=== PATIENT | female | born 1995 | race Hispanic/Latino ===

== ENCOUNTER 2018-11-24 13:51 | Inpatient (IN) | payer MEDICAID, OTHER ==
--- NOTE | 2018-11-24 14:48 | PDOC.LDHP ---
Labor and Delivery H&P Chief complaint: contractions HPI: 23 yo @ 40 wekks by LMP 9.3 week sono presents for cc of contractions. Pt reports contractions began at 7am this morning and were space every 10 minutes and eventually grew in proximity and strength to every 5 minutes. She reports pos movement. Denies LOF, vaginal bleeding and vaginal discharge. Pt initially had positive Ab screen; however, this was after receiving Rhogam for concern of miscarriage. Repeat Ab screen was negative. ROS: Gen- Denies fever chills HEENT: Denies changes in vision, denies headaches CV: Denies CP, increased edema Respiratory: Denies SOB Abd: reports contractions, denies NVDC OB: Pos FM, denies lof, denies vaginal bleeding Current gestational age (weeks): 40 Due date: 11/24/18 Dating criteria: first trimester ultrasound Grav: 1 Para: 0 Current complications: none Abnormal US findings: No Current medications: pre- vitamins Previous surgical history: none Social history: none - Physical Exam Vital signs reviewed and normal: yes General: NAD, breathing through contractions Heart: RRR Lungs: CTAB Abdomen: NTTP Extremeties: no edema FHT: category 1, variability present - Vaginal Exam cm dilated: 3 Effacement: 90% Station: -1 - OB Labs Blood type: A RH: negative Antibody Screen: negative (Pos D s/p Rhogam, repeat Ab screen negative) HIV: negative RPR: negative HEPSAg: negative 1 hour GCT: positive 3 hour GTT: 77,146,73,109 GBS: negative Urine drug screen: not done Rubella: immune - Assessment 1) TIUP: contractions - Plan Plan: observation in L&D -: 1) TIUP - pt reports contractions q6 minutes - currently decreasing frequency to sparse - cervical check 3, 90, -1 - will obs in L&D and recheck in 2 hours to assess if pt has made cervical change Addendum - Attending - Attending Attestation Date/Time: 11/24/18 8178 I personally evaluated the patient and discussed the management with Dr. Perez. I agree with the History, Examination, Assessment and Plan documented above with any addition or exceptions noted below. If unchanged with reassuring NST and continued infrequent ctx d/c home.
[2018-11-24] MEDS ORDERED: Acetaminophen 325 MG TAB PO PRN ×2 (17:07→21:29)
[2018-11-24] MEDS ORDERED: hydrOXYzine 25 MG TAB PO SCH (17:15)
[2018-11-24 17:24] VITALS: BMI 33.3
[2018-11-24] MEDS ORDERED: Bupivacaine/Epinephrine 0.25% 30 ML VIAL ONE (17:59)
[2018-11-24] MEDS ORDERED: Bupivacaine HCl 0.5%/Epinephrine 1:200,000/PF 30 ml Vial ONE (17:59)
[2018-11-24] MEDS ORDERED: NS / Oxytocin 40 units/1000ml 1,000 ML IV PRN (19:47)
[2018-11-24] MEDS ORDERED: Promethazine HCl 25 MG/ML VIAL IM PRN ×2 (19:47→21:29)
[2018-11-24] MEDS ORDERED: Ibuprofen 800 MG TAB PO PRN (19:47)
[2018-11-24] MEDS ORDERED: Lidocaine 1% (PF) 30 ML VIAL SC PRN (19:47)
[2018-11-24] MEDS ORDERED: Ondansetron PF 4 MG/2 ML Vial IVP PRN ×2 (19:47→21:29)
--- NOTE | 2018-11-24 19:53 | PDOC.LDPN ---
Addendum entered and electronically signed by Radha Leyva MD 11/24/18 20:06: FHTs: Category 1; baseline 135, +accels, no decels Original Note: Labor & Delivery Progress Note - Subjective Subjective: painful contractions - Objective Vital signs reviewed and normal: yes General: breathing through contractions Uterine fundus: non tender SVE: 80/0 Dilation: 6 Effacement: 90% Station: 0 FHT: category 1 [place] contractions every: q5-6 min - Assessment (1) Primigravida in third trimester Code(s): Z34.03 - ENCNTR FOR SUPRVSN OF NORMAL FIRST PREG, THIRD TRIMESTER Current Visit: Yes Status: Acute (2) Rh negative state in antepartum period Code(s): O26.899 - OTH RELATED CONDITIONS, UNSPECIFIED TRIMESTER; Z67.91 - UNSPECIFIED BLOOD TYPE, RH NEGATIVE Current Visit: Yes Status: Acute (3) Glucose intolerance Code(s): E74.39 - OTHER DISORDERS OF INTESTINAL CARBOHYDRATE ABSORPTION Current Visit: Yes Status: Acute (4) Obesity Code(s): E66.9 - OBESITY, UNSPECIFIED Current Visit: Yes Status: Chronic Plan: continue plan of care -: 23 yo @ 40 wks by LMP/9.3 week sono TIUP - contractions q6 minutes - SVE: 90/ 0 @ 1430 - SVE: / 0 @ 1630 - SVE: /0 @ 1945 - Admit to obstetrics - Epidural ordered - GBS negative - RH negative - Expectant management, NPO for delivery - Recheck SVE in 2 hrs Rh Negative status - Pt initially had positive Ab screen; however, this was after receiving Rhogam for concern of miscarriage. Repeat Ab screen was negative. Glucose Intolerance Obesity PCP: Gibson eLyva PGY-1 Addendum - Attending - Attending Attestation Date/Time: 11/24/18 2300 I personally evaluated the patient and discussed the management with Dr. Leyva at time of admission. I agree with the History, Examination, Assessment and Plan documented above with any addition or exceptions noted below.
[2018-11-24] MEDS ORDERED: Fentanyl 4 mcg/Bup 0.1% Cadd 100 ML ONE (20:18)
[2018-11-24 20:24] LABS: Hemoglobin 12.3 g/dL (12.0-16.0); Mean Corpuscular HGB CONC 33.1 g/dL (32.0-36.0); Mean Corpuscular Hemoglobin 31.2 pg (27.0-31.0); Mean Corpuscular Volume 94.2 fL (78.0-98.0); Mean Platelet Volume 7.1 fL (7.4-10.4); Platelet Count 255 thou/uL (130-400); RBC Distribution Width 12.4 % (11.5-14.5); Red Blood Cell (RBC) Count 3.93 mill/uL (4.20-5.40); White Blood Cell (WBC) Count 11.2 thou/uL (4.8-10.8)
[2018-11-24 21:07] LABS: Syphilis Antibody Nonreactive (Nonreactive); Syphilis Antibody Index 0.03 S/CO (<1.00 Non-Reactive)
[2018-11-24] MEDS: Lactated Ringer's 1,000 ML IV SCH (21:14)
[2018-11-24] MEDS ORDERED: Naloxone HCl 0.4 mg/ml Vial IVP PRN ×2 (21:29)
[2018-11-24] MEDS ORDERED: diphenhydrAMINE 50 MG/ML VIAL IVP PRN (21:29)
[2018-11-24] MEDS ORDERED: Lactated Ringer's 500 ML IV PRN (21:29)
[2018-11-24] MEDS ORDERED: ePHEDrine/0.9% NaCl/PF SYRINGE 50 mg/10 ml SLOW IVP PRN (21:29)
[2018-11-24] MEDS ORDERED: Eucerin (Mineral Oil/Petrolatum,White) 30 gm Jar TOP PRN (21:29)
[2018-11-24] MEDS ORDERED: Fentanyl 4 mcg/Bupivacaine 0.1% Cassette 100 ML EPIDURAL SCH (21:30)
[2018-11-24] MEDS ORDERED: Communication Order-Pharmacy FS SCH (21:30)
--- NOTE | 2018-11-24 21:47 | PDOC.LDPN ---
Labor & Delivery Progress Note - Subjective Subjective: comfortable - Objective Vital signs reviewed and normal: yes General: resting Uterine fundus: non tender SVE: /-1 Dilation: 7 Effacement: 90% Station: -1 FHT: category 1 [place] contractions every: 2-3 min - Assessment (1) Primigravida in third trimester Code(s): Z34.03 - ENCNTR FOR SUPRVSN OF NORMAL FIRST PREG, THIRD TRIMESTER Current Visit: Yes Status: Acute (2) Rh negative state in antepartum period Code(s): O26.899 - OTH RELATED CONDITIONS, UNSPECIFIED TRIMESTER; Z67.91 - UNSPECIFIED BLOOD TYPE, RH NEGATIVE Current Visit: Yes Status: Acute (3) Glucose intolerance Code(s): E74.39 - OTHER DISORDERS OF INTESTINAL CARBOHYDRATE ABSORPTION Current Visit: Yes Status: Acute (4) Obesity Code(s): E66.9 - OBESITY, UNSPECIFIED Current Visit: Yes Status: Chronic Plan: continue plan of care -: 23 yo @ 40 wks by LMP/9.3 week sono TIUP, active labor - SVE: / 0 @ 1430 - SVE: / 0 @ 1630 - SVE: /0 @ 1945, FHTs Cat 1 - SVE: 1 @ 2145, epidural in place, FHTs Cat 1: baseline 135, accels present, no decels, cxn q2-3 min - GBS negative - RH negative - Expectant management, NPO - Recheck SVE in 2 hrs Rh Negative status - Pt initially had positive Ab screen; however, this was after receiving Rhogam for concern of miscarriage. Repeat Ab screen was negative. Glucose Intolerance Obesity PCP: Gibson Leyva PGY-1
--- NOTE | 2018-11-25 00:43 | PDOC.LDPN ---
Labor & Delivery Progress Note - Subjective Subjective: comfortable - Objective Vital signs reviewed and normal: yes General: NAD Dilation: 7 Effacement: 100% Station: 0 FHT: category 1 [place] contractions every: q5-10 minutes - Assessment (1) Primigravida in third trimester Code(s): Z34.03 - ENCNTR FOR SUPRVSN OF NORMAL FIRST PREG, THIRD TRIMESTER Current Visit: Yes Status: Acute (2) Rh negative state in antepartum period Code(s): O26.899 - OTH RELATED CONDITIONS, UNSPECIFIED TRIMESTER; Z67.91 - UNSPECIFIED BLOOD TYPE, RH NEGATIVE Current Visit: Yes Status: Acute (3) Glucose intolerance Code(s): E74.39 - OTHER DISORDERS OF INTESTINAL CARBOHYDRATE ABSORPTION Current Visit: Yes Status: Acute (4) Obesity Code(s): E66.9 - OBESITY, UNSPECIFIED Current Visit: Yes Status: Chronic Plan: continue plan of care -: TIUP, active labor - SVE: 3 90/ 0 @ 1430 - SVE: / 0 @ 1630 - SVE: /0 @ 1945, FHTs Cat 1 - SVE: /-1 @ 2145, epidural in place, FHTs Cat 1: baseline 135, accels present, no decels, cxn q2-3 min - SVE: 7100/0 @ 0020 with bulging bag, FHTs Cat 1: baseline 120, accels present , no decels. Occasional periods of minimal variability. cxn q5-10 min. - GBS negative - RH negative - Expectant management, NPO - Recheck SVE in 2 hrs Rh Negative status - Pt initially had positive Ab screen; however, this was after receiving Rhogam for concern of miscarriage. Repeat Ab screen was negative. Glucose Intolerance Obesity PCP: Gibson Leyva PGY-1
[2018-11-25 01:05] LABS: HBSAg Index 0.33 S/CO (0-0.99); Hep B Surf Ag Non-Reactive S/CO (NonReactive)
--- NOTE | 2018-11-25 02:53 | PDOC.LDPN ---
Labor & Delivery Progress Note - Subjective Subjective: comfortable - Objective General: NAD, resting SVE: 8/100/0 [place] contractions every: q5 min AROM: meconium stained fluid (light mec) - Assessment (1) Primigravida in third trimester Code(s): Z34.03 - ENCNTR FOR SUPRVSN OF NORMAL FIRST PREG, THIRD TRIMESTER Current Visit: Yes Status: Acute (2) Rh negative state in antepartum period Code(s): O26.899 - OTH RELATED CONDITIONS, UNSPECIFIED TRIMESTER; Z67.91 - UNSPECIFIED BLOOD TYPE, RH NEGATIVE Current Visit: Yes Status: Acute (3) Glucose intolerance Code(s): E74.39 - OTHER DISORDERS OF INTESTINAL CARBOHYDRATE ABSORPTION Current Visit: Yes Status: Acute (4) Obesity Code(s): E66.9 - OBESITY, UNSPECIFIED Current Visit: Yes Status: Chronic Plan: continue plan of care -: TIUP, active labor - SVE: 3/ 90/ 0 @ 1430 - SVE: 3/ 90/ 0 @ 1630 - SVE: 6/90/0 @ 1945, FHTs Cat 1 - SVE: 7/80/-1 @ 2145, epidural in place - SVE: 7/100/0 @ 0020 with bulging bag - SVE: 8/100/0 @ 0230, ruptured, light mec 0115. -Int Cat 2 for 1 early decel after rupture. -Now Cat 1 FHTs. baseline 150, accels present. Overall Cat 1. - GBS negative - RH negative - Expectant management, NPO - Recheck SVE in 2 hrs Rh Negative status - Pt initially had positive Ab screen; however, this was after receiving Rhogam for concern of miscarriage. Repeat Ab screen was negative. Glucose Intolerance Obesity PCP: Gibson Leyva PGY-1
[2018-11-25] MEDS ORDERED: Fentanyl 4 mcg/Bup 0.1% Cadd 100 ML ONE (04:13)
[2018-11-25] MEDS: Lactated Ringer's 1,000 ML IV SCH (04:16)
--- NOTE | 2018-11-25 04:29 | PDOC.LDPN ---
Labor & Delivery Progress Note - Subjective Subjective: comfortable - Objective Vital signs reviewed and normal: yes General: NAD Uterine fundus: non tender SVE: @ 0415 by Nurse Dill Dilation: 8.5 Effacement: 100% Station: 0 FHT: category 1, variability present [place] contractions every: > 10 minutes Plan: pitocin for augmentation -: As patient has not made significant cervical change since SROM at 0114, will start pitocin for labor augmentation. Recheck cervix in [address], patient comfortable
[2018-11-25] MEDS ORDERED: NS w/ Oxytocin 10 units 500 ML IV SCH (04:30)
--- NOTE | 2018-11-25 05:08 | PDOC.EVN ---
Event Note - Event Note Event Note: After call was made to start pitocin, FHT started showing minimal variability Currently Baseline 150, minimal variability, + accels, no decels. Maternal vital signs: BP 90/49, HR 105, Temp 101.9 Light meconium with SROM Maternal Fever - Suspect Intra-amniotic Infection -1L LR bolus -Ampicillin, Gentamicin -Hold off on pitocin due to category II strip -Recheck in 30 minutes and consider if not progressing and NRFHT Addendum - Attending - Attending Attestation Date/Time: 11/25/18 0646 I personally discussed the management with Dr. Gil. I agree with the History, Examination, Assessment and Plan documented above with any addition or exceptions noted below. Patient has fever, slowing of labor consistent with IAI. Cultures sent. Antibiotics initiated.
[2018-11-25] MEDS: Ampicillin 2 GM in Sodium Chloride 0.9% 100 ML IVPB SCH ×3 (05:09→17:55)
[2018-11-25] MEDS ORDERED: Lactated Ringer's 1,000 ML IV SCH (05:15)
--- NOTE | 2018-11-25 06:10 | PDOC.EVN ---
Event Note - Event Note Event Note: 0600 IUPC was placed, MVUs inadequate at 50. FHTs cat 2: baseline 155, minimal variability, Cxns q5min, no decels Last SVE: 8/100/0 @ 0530. Pt given fluid bolus 500 LR, tylenol 650 mg. Amp and Gent running. If variability improves, plan to augment with Pitocin. T 102.4. Continue to monitor temp.
[2018-11-25] MEDS ORDERED: Misoprostol 200 MCG TAB ONE (09:22)
[2018-11-25] MEDS ORDERED: Methylergonovine 0.2 MG/ML VIAL ONE (09:22)
[2018-11-25] MEDS ORDERED: NS / Oxytocin 40 units/1000ml 1,000 ML IV SCH (11:57)
[2018-11-25] MEDS ORDERED: Bisacodyl 10 MG SUPP PR PRN (11:57)
[2018-11-25] MEDS ORDERED: Adacel (T-DAP) 0.5 ML SYRINGE IM ONE (11:57)
[2018-11-25] MEDS ORDERED: Milk Of Magnesia 30 ML UDCUP PO PRN (11:57)
--- NOTE | 2018-11-25 12:24 | PDOC.OPDEL ---
OB Operative/Delivery Note Delivery Dr/Surgeon: Gibson/Ana/Margaret Pre-Delivery Diagnosis: active labor Procedure/Post Delivery Dx: spontaneous vaginal delivery Weeks gestation: 40 (40.1) Anesthesia: local - Findings A Sex: female - 1 min: 8 - 5 min: 9 - Additional Findings/Plan Placenta delivered: manual removal Repaired Obstetrical Laceration: 2nd degree Estimated blood loss: 927 Compilations/Other Findings: Delivering Physician: Gibson/Ana Attending: Margaret Procedure: Spontaneous Vaginal Delivery Anesthesia: epidural, Local for Repair QBL: 927 ml Pre-op Diagnosis: 1. Term intrauterine in labor 2. Obesity 3. Rh negative mother 4. Glucose intolerance Post-op Diagnosis: 1. Term intrauterine , delivered 2. Chorioamnionitis Indications: A 23y/o female G1P presents in active labor. Delivery Note: This is 23yo F ->1 @ 40.1 wks who delivered a viable F infant at 0916 on 11/25/2018. Following an antepartum course complicated by maternal fever, tachycardia, and IV antibiotics given, a vigorous F was delivered over an 2nd degree perineal laceration in the Left OP position with nuchal cord x1. Anterior Shoulder and then remainder of the body delivered. Nuchal cord reduced. The head was held down and mouth and nares were bulb suctioned. Cord clamped and cut and cord blood collected. Umbilical cord avulsed and placenta was manually extracted. 3 vessel cord noted. Fundal massage was performed and the fundus was firm. The cervix and vagina were inspected. 2nd degree perineal laceration noted and repaired with 3-0 chromic in the usual fashion with good approximation and hemostasis. Local anesthetic was injected at site. Patient has increasing vaginal swelling with small persistent superficial bleed. Vaginal pack placed for hemostasis. Infant went to nursery in good condition for IV antibiotics. Apgars were 8/9 at 1 & 5 minutes, respectively. Patient tolerated delivery well and went to after routine recovery/care. Post delivery plan: routine recovery Addendum - Attending - Attending Attestation Date/Time: 11/26/18 0466 I was present for and assisted in the entire performed by Suraj Perez and Gibson. I agree with documentation as above.
[2018-11-25] MEDS: Ibuprofen 800 MG TAB PO SCH ×2 (13:47→21:36)
[2018-11-25] MEDS ORDERED: Sodium Chloride 0.9% 10 ML ONE (16:08)
--- NOTE | 2018-11-25 16:17 | PDOC.EVN ---
Event Note - Event Note Event Note: Vag pack removed. Laceration appears hemostatic.
[2018-11-25] MEDS: Ferrous Sulfate 325 MG TAB PO SCH (17:11)
[2018-11-25] MEDS: Docusate Calcium (SURFAK) 240 MG CAP PO SCH (21:36)
[2018-11-26] MEDS: Lactated Ringer's 1,000 ML IV SCH (00:44)
[2018-11-26] MEDS: Ampicillin 2 GM in Sodium Chloride 0.9% 100 ML IVPB SCH ×2 (00:44→06:25)
[2018-11-26] MEDS: Ibuprofen 800 MG TAB PO SCH ×3 (05:07→21:42)
--- NOTE | 2018-11-26 06:19 | PDOC.PP ---
Post Progress Note Post Day #: 1 Subjective: Ms. Hayes is doing well this morning. She reports vaginal discomfort/tenderness but this is improving. well, notes that at times there is discomfort in L breast with feedings. Denies fever/chills. Plans to ambulate and shower today after hameed removed. nurse mentions that 50mL bleeding has been recorded since vaginal pack removed yesterday. PO intake tolerated: yes Flatus: yes Ambulation: no Vital Signs (12 hours) Temp Pulse Resp BP Pulse Ox 11/26/18 05:00 97.9 F 86 20 107/56 L 98 11/26/18 00:15 98.2 F 92 18 108/56 L 11/25/18 20:20 97.8 F 92 20 108/54 L 97 Weight Weight 90.718 kg - Physical Examination General: NAD Cardiovascular: no m/r/g, RRR Respiratory: clear to auscultation bilaterally, non-labored breathing Abdominal: + bowel sounds, lochia, no distention, appropriately TTP Fundus firm & at: below umbilicus Extremities: negative homans (B) Deviation from normal: Sutures intact, no tunneling or hematoma on digital vaginal exam Neurological: no gross focal deficits Psychiatric: normal affect Result Diagrams: 11/24/18 20:14 Additional Labs: Post Labs Blood Type A NEGATIVE 11/24/18 21:27 Hep Bs Antigen Non-Reactive S/CO (NonReactive) 11/24/18 20:14 (1) care following vaginal delivery Code(s): Z39.2 - ENCOUNTER FOR ROUTINE FOLLOW-UP Status: Acute (2) Chorioamnionitis, delivered, current hospitalization Code(s): O41.1290 - CHORIOAMNIONITIS, UNSP TRIMESTER, NOT APPLICABLE OR UNSP Status: Acute (3) Glucose intolerance Code(s): E74.39 - OTHER DISORDERS OF INTESTINAL CARBOHYDRATE ABSORPTION Status : Acute (4) Rh negative state in antepartum period Code(s): O26.899 - OTH RELATED CONDITIONS, UNSPECIFIED TRIMESTER; Z67.91 - UNSPECIFIED BLOOD TYPE, RH NEGATIVE Status: Acute (5) Obesity Code(s): E66.9 - OBESITY, UNSPECIFIED Status: Chronic - Assessment/Plan Post - QBL >927 with 50mL PP bleedng, patient asymptomatic though she has not ambulated yet. Plan to check CBC tomorrow am. - d/c hameed this morning - undecided on contraception, considering implant options - - dairy nutrition consultant consulted today - continue routine PP care Intra-amniotic Infection - afebrile since delivery - cultures pending - on gent and amp, will d/c antibiotics this am Rh negative - baby was AB negative, no need for PP rhogam Glucose intolerance Obesity Dispo: plan for possible discharge tomorrow considering no further complications Addendum - Attending - Attending Attestation Date/Time: 11/26/18 0492 I personally evaluated the patient and discussed the management with Dr. Arreaga I agree with the History, Examination, Assessment and Plan documented above with any addition or exceptions noted below. PPD # 1 Pt denies dizziness, CP or SOB. No heavy bleeding or passage of large clots. Hameed still in place draining clear urine. Perineal laceration intact. No active bleeding. Minimal labial edema. Afebrile since prior to delivery. 1. IAI-d/c antibiotics at this time 2. Obstetric laceration-bleeding controlled. Can d/c hameed at this time. No symptoms of anemia. recheck H+H in am. 3. Routine PP care. Anticipate d/c to home tomorrow.
[2018-11-26] MEDS: Ferrous Sulfate 325 MG TAB PO SCH ×2 (08:41→17:44)
[2018-11-26] MEDS: Docusate Calcium (SURFAK) 240 MG CAP PO SCH ×2 (09:12→21:42)
[2018-11-26] MEDS ORDERED: Benzocaine-Menthol 82.5 ML CAN TOP PRN (21:35)
[2018-11-27] MEDS: Ibuprofen 800 MG TAB PO SCH ×2 (06:00→14:50)
[2018-11-27] MEDS: Ferrous Sulfate 325 MG TAB PO SCH ×2 (07:48→09:02)
--- NOTE | 2018-11-27 07:59 | PDOC.PP ---
Post Progress Note Post Day #: 2 Subjective: Patient doing well. Reports lochia has slowed down significantly. air quality consultant was helpful yesterday. She has had some discomfort with and gave baby bottle last night. PO intake tolerated: yes Flatus: yes Ambulation: yes Vital Signs (12 hours) Temp Pulse Resp BP 11/27/18 04:20 98.1 F 76 16 124/74 11/26/18 23:40 98.2 F 83 16 116/56 L Weight Weight 90.718 kg - Physical Examination General: NAD Cardiovascular: RRR Respiratory: clear to auscultation bilaterally Abdominal: + bowel sounds, no distention, appropriately TTP Fundus firm & at: below umbilicus Extremities: negative homans (B) Neurological: no gross focal deficits Psychiatric: normal affect Result Diagrams: 11/27/18 08:18 Additional Labs: Post Labs Blood Type A NEGATIVE 11/24/18 21:27 Hep Bs Antigen Non-Reactive S/CO (NonReactive) 11/24/18 20:14 (1) care following vaginal delivery Code(s): Z39.2 - ENCOUNTER FOR ROUTINE FOLLOW-UP Status: Acute (2) Chorioamnionitis, delivered, current hospitalization Code(s): O41.1290 - CHORIOAMNIONITIS, UNSP TRIMESTER, NOT APPLICABLE OR UNSP Status: Acute (3) Glucose intolerance Code(s): E74.39 - OTHER DISORDERS OF INTESTINAL CARBOHYDRATE ABSORPTION Status : Acute (4) Rh negative state in antepartum period Code(s): O26.899 - OTH RELATED CONDITIONS, UNSPECIFIED TRIMESTER; Z67.91 - UNSPECIFIED BLOOD TYPE, RH NEGATIVE Status: Acute (5) Obesity Code(s): E66.9 - OBESITY, UNSPECIFIED Status: Chronic - Assessment/Plan Post - QBL >927 with 50mL PP bleeding, patient asymptomatic. Repeat H/H results pending. - undecided on contraception, considering implant options - lochia decreasing - along with some bottle last night - continue routine PP care Intra-amniotic Infection - afebrile since delivery - cultures negative to date - was on gent and amp, discontinued after 24 hrs Rh negative - baby was AB negative, no need for PP rhogam Glucose intolerance Obesity Dispo: discharge today Addendum - Attending - Attending Attestation Date/Time: 11/28/18 1005 I personally evaluated the patient and discussed the management with Dr. Arreaga I agree with the History, Examination, Assessment and Plan documented above with any addition or exceptions noted below. Stable PPD #2. No evidence of symptomatic anemia. D/C to home today.
[2018-11-27 08:34] LABS: Hemoglobin 9.4 g/dL (12.0-16.0)
[2018-11-27 08:36] VITALS: BP 111/59; TEMP 98
[2018-11-27] MEDS: Docusate Calcium (SURFAK) 240 MG CAP PO SCH (09:02)
== END 2018-11-27 15:07 | disposition home or self-care (01) | DRG 805 ==
LOC: L&D/OP 13:51 → L&D 21:11 → 3SW 11-25 12:18
PROVIDERS: ADMIT Family Medicine; ATTEND Family Medicine
PROC: 10E0XZZ Delivery of Products of Conception, External Approach (ICD-10-PCS; principal; 2018-11-25)
PROC: 0KQM0ZZ Repair Perineum Muscle, Open Approach (ICD-10-PCS; 2018-11-25)
PROC: 10907ZC Drainage of Amniotic Fluid, Therapeutic from Products of Conception, Via Natural or Artificial Opening (ICD-10-PCS; 2018-11-25)
DX: O48.0 Post-term pregnancy (principal); O41.1230 Chorioamnionitis, third trimester, not applicable or unspecified; Z37.0 Single live birth; O99.814 Abnormal glucose complicating childbirth; O99.214 Obesity complicating childbirth; E66.9 Obesity, unspecified; O26.893 Other specified pregnancy related conditions, third trimester; Z3A.40 40 weeks gestation of pregnancy; Z67.91 Unspecified blood type, Rh negative; O70.1 Second degree perineal laceration during delivery; O69.81X0 Labor and delivery complicated by cord around neck, without compression, not applicable or unspecified
CPT/HCPCS: 36415; 51702; 85014; 85018; 85027; 86780; 86850; 86900; 86901; 87070; 87205; 87340; 88307; 99285; J0290; J0670; J1580; J2001; J2210; J7050